=== PATIENT | male | born 2000 | race Two or more races ===

== ENCOUNTER → 2025-09-29 | Emergency (ER) | payer OTHER ==
[~2025-09-29] VITALS: Ht 180.3 cm; Wt 90.7 kg
[~2025-09-29] MED LIST: 0.9 % SODIUM CHLORIDE 1,000 ML IV SCH; FAMOTIDINE/PF 20 MG/2 ML VIAL IV ONE; FAMOTIDINE/PF 20 MG/2 ML VIAL ONE; KETOROLAC TROMETHAMINE 30 MG VIAL IV ONE; KETOROLAC TROMETHAMINE 30 MG VIAL ONE; ONDANSETRON HCL 2 MG/ML VIAL IV ONE; ONDANSETRON HCL 2 MG/ML VIAL ONE; PIPERACILLIN/TAZOBACTAM SODIUM 3.375 GM VIAL IV ONE
[2025-09-29 04:42] VITALS: BP 124/81; O2SAT 97
[2025-09-29 06:48] LABS: BASO % 0.2 % (0.1-1.2); EOS # 0.02 (0.04-0.54); EOS % 0.4 % (0.7-7.0); LYMPH # 0.35 (1.18-3.74); LYMPH % 6.5 % (19.3-53.1); MEAN PLATELET VOLUME 8.50 fl (9.4-12.4); MONO # 0.33 (0.24-0.82); MONO % 6.1 % (4.7-12.5); NEUT # 4.69 (1.56-6.13); NEUT % 86.4 % (34.0-71.1); RED CELL DISTRIBUTION WIDTH 12.7 % (11.6-14.4)
[2025-09-29 06:52] LABS: ERYTHROCYTE SEDIMENTATION RATE 2 mm/hr (0-15)
[2025-09-29 07:14] LABS: COVID-19 AG NEGATIVE (NEGATIVE)
[2025-09-29 07:22] LABS: ALT/SGPT 24.0 U/L (12-78); AST/SGOT 14.0 U/L (15-37); BILIRUBIN TOTAL 1.33 mg/dL (0.3-1.2); BUN CREA RATIO 12.0 (7.0-25.0); CREATININE SERUM 0.86 mg/dL (0.70-1.30); GFR 106.67; GLOBULINA 3.3 G/DL (2.4-3.5); GLUCOSE FASTING 109.0 mg/dL (65-100); OSMOLALITY SERUM 279.0 MOSM/KG (275-295)
[2025-09-29 07:32] LABS: INR 1.0
[2025-09-29 10:25] LABS: URINE APPEARANCE Turbid; URINE BILIRRUBIN Negative (NEGATIVE); URINE BLOOD Negative; URINE COLOR Dark Yellow; URINE GLUCOSE Negative (NEGATIVE); URINE KETONE Trace (NEGATIVE); URINE LEUKOCYTE Trace; URINE NITRATE Negative; URINE PROTEIN 30 (NEGATIVE); URINE UROBILINOGEN 1.0 E.U./dl
[2025-09-29 10:31] LABS: URINE BACTERIA 82.3 uL (0.0-1933); URINE CAST 6.79 uL (0.0-1.40); URINE EPITHELIAL CELLS 5.2 uL (0.0-38.8); URINE RBC 5.8 uL (0.0-20.8); URINE WBC 12.4 uL (0.0-23.2)
[2025-09-29 10:53] LABS: URINE CRYSTALS MODERATE /HPF
== END | disposition home or self-care (01) ==
LOC: ER 04:39
PROVIDERS: Student in an Organized Health Care Education/Training Program
DX: R10.31 Right lower quadrant pain (principal); K35.890 Other acute appendicitis without perforation or gangrene; N39.0 Urinary tract infection, site not specified; Z20.822 Contact with and (suspected) exposure to COVID-19
CPT/HCPCS: 36415; 74177; 96365; 99284; J1885; J2405; J2543; J3490; Q9965